=== PATIENT | male | born 1975 | race Hispanic/Latino ===

== ENCOUNTER 2017-08-06 06:12 | Emergency (ER) | payer OTHER ==
--- NOTE | 2017-08-06 06:36 | EDPHYS ---
Physician Documentation [facility] Name: Denis De Age: 41 yrs Sex: Male : 1975 Arrival Date: 08/06/2017 Time: 06:15 Bed 16 Private MD: ED Physician Markos Rosales HPI: 08/06 06:36 This 41 yrs old Male presents to ER via Unassigned with complaints of Nose kb Bleed. 06:36 The patient presents with a nose bleed, causative factors include: unknown, and the kb bleeding resolved prior to arrival. Onset: The symptoms/episode began/occurred 6 month(s) ago, and became worse yesterday. Modifying factors: The symptoms are alleviated by nothing. the symptoms are aggravated by blowing nose. Associated signs and symptoms: The patient has no apparent associated signs or symptoms, Loss of consciousness: the patient experienced no loss of consciousness. Severity of symptoms: At their worst the symptoms were mild moderate in the emergency department the symptoms have resolved. The patient has experienced similar episodes in the past. The patient has not recently seen a physician. Pt states he has been having intermittent nose bleeds for 6 months. States it starts after blowing his nose. Yesterday it happened twice and then again this morning so he came to get it checked out. Bleeding resolved shortly after starting. States he has diabetes and high blood pressure in his family, but has never been diagnosed with anything so he wanted to be checked for that too because he has noticed some redness to his feet over the last few months. States he looked it up last night and was worried about diabetic ulcers. Wears work boots 6 days a week. . Historical: - Allergies: 06:41 No Known Allergies; ea - Home Meds: 06:41 None [Active]; ea - PMHx: 06:41 None; ea - PSHx: 06:41 None; ea - Immunization history:: Adult Immunizations. - Social history:: Smoking status: Patient/guardian denies using tobacco. ROS: 06:36 Constitutional: Negative for fever, chills, and weight loss, Cardiovascular: Negative kb for chest pain, palpitations, and edema, Respiratory: Negative for shortness of breath, cough, wheezing, and pleuritic chest pain, Abdomen/GI: Negative for abdominal pain, nausea, vomiting, diarrhea, and constipation, Back: Negative for injury and pain, MS/Extremity: Negative for injury and deformity, Neuro: Negative for headache, weakness, numbness, tingling, and seizure. 06:36 ENT: Positive for nose bleed. 06:36 Skin: Positive for erythema, of the right foot and left foot. Exam: 06:36 Constitutional: This is a well developed, well nourished patient who is awake, alert, kb and in no acute distress. Head/Face: Normocephalic, atraumatic. ENT: Nares patent. No nasal discharge, no septal abnormalities noted. Tympanic membranes are normal and external auditory canals are clear. Oropharynx with no redness, swelling, or masses, exudates, or evidence of obstruction, uvula midline. Mucous membranes moist. Neck: Trachea midline, no thyromegaly or masses palpated, and no cervical lymphadenopathy. Supple, full range of motion without nuchal rigidity, or vertebral point tenderness. No Meningismus. Chest/axilla: Normal chest wall appearance and motion. Nontender with no deformity. No lesions are appreciated. Cardiovascular: Regular rate and rhythm with a normal S1 and S2. No gallops, murmurs, or rubs. Normal PMI, no JVD. No pulse deficits. Respiratory: Lungs have equal breath sounds bilaterally, clear to auscultation and percussion. No rales, rhonchi or wheezes noted. No increased work of breathing, no retractions or nasal flaring. Abdomen/GI: Soft, non-tender, with normal bowel sounds. No distension or tympany. No guarding or rebound. No evidence of tenderness throughout. MS/ Extremity: Pulses equal, no cyanosis. Neurovascular intact. Full, normal range of motion. Neuro: Awake and alert, GCS 15, oriented to person, place, time, and situation. Cranial nerves II-XII grossly intact. Motor strength 5/5 in all extremities. Sensory grossly intact. Cerebellar exam normal. Normal gait. 06:36 Skin: Appearance: normal except for affected area, Color: normal in color, pink, Temperature: normal temperature, warm, Moisture: normal moisture, dry, dry skin noted to bottom of bilateral feet. No redness, sores, ulcerations, open skin, swelling, drainage noted. . Vital Signs: 06:20 BP 163 / 90; Pulse 75; Resp 18; Temp 98.7(O); Pulse Ox 97% on R/A; Weight 95.25 kg; ea Height 5 ft. 7 in. (170.18 cm); Pain 4/10; 07:01 BP 152 / 80; Pulse 68; Resp 18 S; Temp 98.0(O); Pulse Ox 100% on R/A; ea 06:20 Body Mass Index 32.89 (95.25 kg, 170.18 cm) ea MDM: 06:35 Patient medically screened. kb 06:36 Data reviewed: vital signs, nurses notes. Data interpreted: Pulse oximetry: on room air kb is 97 %. Interpretation: normal. Counseling: I had a detailed discussion with the patient and/or guardian regarding: the historical points, exam findings, and any diagnostic results supporting the discharge/admit diagnosis, the need for outpatient follow up, an ENT specialist, a family practitioner, to return to the emergency department if symptoms worsen or persist or if there are any questions or concerns that arise at home. ED course: Pt educated on need for follow up with ENT regarding nose bleeds. Educated on not blowing nose because it causes bleeding. Verbal understanding received. Also educated on need for follow up with PCP for Hemoglobin A1C to test for diabetes because of his concern that he will develop it since it runs in his family. Verbal understanding received. Instructed to keep blood pressure log and take to PCP as well. . Administered Medications: No medications were administered Disposition: 08/06/17 06:35 Discharged to Home. Impression: Epistaxis. - Condition is Stable. - Discharge Instructions: Nosebleed, [id number]. - Work release form, Medication Reconciliation Form, Thank You Letter, Antibiotic Education, Prescription Opioid Use form. - Follow up: Emergency Department; When: As needed; Reason: Worsening of condition. Follow up: Private Physician; When: 2 - 3 days; Reason: Recheck today's complaints, Continuance of care, Re-evaluation by your physician. Follow up: Rosa Jain MD; When: 2 - 3 days; Reason: Recheck today's complaints. Addendum: 08/10/2017 08:24 Co-signature as Attending Physician, Markos Rosales MD. g s Signatures: Kendal Porter, LEIDAC ELISSA-Ckb Gutierrez, Eda, RN RN ea Rosales, Markos, MD MD gs
--- NOTE | 2017-08-06 07:03 | ER ---
Nurse's Notes [facility] Name: Denis De Age: 41 yrs Sex: Male : 1975 Arrival Date: 08/06/2017 Time: 06:15 Bed 16 Private MD: Diagnosis: Epistaxis Presentation: 08/06 06:20 Presenting complaint: Patient states: He has been having nose bleeds on and off for the ea past 6 months but has been worse this past week, reports he has been hurting on the bottom of his feet and is not sure if it's his new boots or something else. Transition of care: patient was not received from another setting of care. Onset of symptoms was August 06, 2017. Care prior to arrival: None. 06:20 Method Of Arrival: Ambulatory ea 06:20 Acuity: GUILLERMO 5 ea Triage Assessment: 06:25 General: Appears in no apparent distress. Behavior is calm, cooperative, appropriate ea for age. Pain: Complains of pain in right foot and left foot Pain currently is 4 out of 10 on a pain scale. Quality of pain is described as aching. EENT: Reports nose bleeds for the past 6 months. Neuro: Level of Consciousness is awake, alert, obeys commands, Oriented to person, place, time, situation. Cardiovascular: Patient's skin is warm and dry. Respiratory: Airway is patent Respiratory effort is even, unlabored, Respiratory pattern is regular, symmetrical. Historical: - Allergies: 06:41 No Known Allergies; ea - Home Meds: 06:41 None [Active]; ea - PMHx: 06:41 None; ea - PSHx: 06:41 None; ea - Immunization history:: Adult Immunizations. - Social history:: Smoking status: Patient/guardian denies using tobacco. Screenin:40 Abuse screen: Denies threats or abuse. Nutritional screening: No deficits noted. ea Tuberculosis screening: No symptoms or risk factors identified. Fall Risk None identified. Assessment: 07:00 Reassessment: Patient and/or family updated on plan of care and expected duration. Pain ea level reassessed. Patient is alert, oriented x 3, equal unlabored respirations, skin warm/dry/pink. Discharge instructions given to patient, verbalized the understanding of instruction. Vital Signs: 06:20 BP 163 / 90; Pulse 75; Resp 18; Temp 98.7(O); Pulse Ox 97% on R/A; Weight 95.25 kg; ea Height 5 ft. 7 in. (170.18 cm); Pain 4/10; 07:01 BP 152 / 80; Pulse 68; Resp 18 S; Temp 98.0(O); Pulse Ox 100% on R/A; ea 06:20 Body Mass Index 32.89 (95.25 kg, 170.18 cm) ea ED Course: 06:15 Patient arrived in ED. am2 06:20 Patient has correct armband on for positive identification. Bed in low position. Call ea light in reach. Side rails up X2. 06:25 Kendal Porter FNP-C is PHCP. kb 06:25 Arm band placed on right wrist. ea 06:26 Markos Rosales MD is Attending Physician. kb 06:35 Eda Gutierrez RN is Primary Nurse. ea 06:35 Rosa Jain MD is Referral Physician. kb 06:37 Triage completed. ea 06:41 No provider procedures requiring assistance completed. Patient did not have IV access ea during this emergency room visit. Administered Medications: No medications were administered Outcome: 06:35 Discharge ordered by . kb 06:59 Discharged to home ambulatory. ea 06:59 Condition: unchanged 06:59 Discharge instructions given to patient, Instructed on discharge instructions, follow up and referral plans. Demonstrated understanding of instructions, follow-up care. 07:02 Patient left the ED. ea Signatures: Kendal Porter FNP-C UX INTERACTION DESIGNER-Ckb Kaila Forrester am2 Eda Gutierrez, RN RN shonna
[2017-08-06 07:07] VITALS: BP 152/80; TEMP 98; O2SAT 100
== END 2017-08-06 07:02 | disposition home or self-care (01) ==
LOC: ER 06:12
DX: R04.0 Epistaxis (principal)
CPT/HCPCS: 99281

== ENCOUNTER 2019-11-11 22:37 | Emergency (ER) | payer SELFPAY, OTHER ==
[2019-11-12] MEDS ORDERED: ONDANSETRON 4 MG/2 ML VIAL ONE (01:11)
[2019-11-12] MEDS ORDERED: IBUPROFEN 400 MG TAB ONE (01:11)
[2019-11-12] MEDS ORDERED: IBUPROFEN 200 MG TAB PO ONE (01:11)
[2019-11-12] MEDS ORDERED: NA CHLORIDE 0.9% 1,000 ML ONE (01:12)
--- NOTE | 2019-11-12 02:49 | EDPHYS ---
Physician Documentation [facility] Name: Denis De Age: 43 yrs Sex: Male : 1975 Arrival Date: 11/11/2019 Time: 22:39 Bed 17 Private MD: ED Physician Jaime Hunt HPI: 11/11 02:46 This 43 yrs old Male presents to ER via Ambulatory with complaints of Fever, tw4 Chills. 02:46 The patient reports fever, not measured (subjective). Onset: The symptoms/episode tw4 began/occurred 5 day(s) ago. Modifying factors: there are no obvious modifying factors. Associated signs and symptoms: Pertinent positives: arthralgias, chills. Severity of symptoms: At their worst the symptoms were moderate in the emergency department the symptoms are unchanged. The patient has not experienced similar symptoms in the past. Historical: - Allergies: 00:05 No Known Allergies; sg - PSHx: 00:05 None; sg - Immunization history:: Adult Immunizations not up to date. - Social history:: Smoking status: Patient denies any tobacco usage or history of. ROS: 02:46 Eyes: Negative for injury, pain, redness, and discharge, Cardiovascular: Negative for tw4 chest pain, palpitations, and edema, Respiratory: Negative for shortness of breath, cough, wheezing, and pleuritic chest pain, Abdomen/GI: Negative for abdominal pain, nausea, vomiting, diarrhea, and constipation, Back: Negative for injury and pain, MS/Extremity: Negative for injury and deformity, Skin: Negative for injury, rash, and discoloration, Neuro: Negative for headache, weakness, numbness, tingling, and seizure. 02:46 Constitutional: Positive for chills, fever. Exam: 02:46 Constitutional: This is a well developed, well nourished patient who is awake, alert, tw4 and in no acute distress. Head/Face: Normocephalic, atraumatic. Chest/axilla: Normal chest wall appearance and motion. Nontender with no deformity. No lesions are appreciated. Cardiovascular: Regular rate and rhythm with a normal S1 and S2. No gallops, murmurs, or rubs. Normal PMI, no JVD. No pulse deficits. Respiratory: Lungs have equal breath sounds bilaterally, clear to auscultation and percussion. No rales, rhonchi or wheezes noted. No increased work of breathing, no retractions or nasal flaring. Abdomen/GI: Soft, non-tender, with normal bowel sounds. No distension or tympany. No guarding or rebound. No evidence of tenderness throughout. Back: No spinal tenderness. No costovertebral tenderness. Full range of motion. MS/ Extremity: Pulses equal, no cyanosis. Neurovascular intact. Full, normal range of motion. Neuro: Awake and alert, GCS 15, oriented to person, place, time, and situation. Cranial nerves II-XII grossly intact. Motor strength 5/5 in all extremities. Sensory grossly intact. Cerebellar exam normal. Normal gait. Vital Signs: 00:05 BP 142 / 77; Pulse 102; Resp 18; Temp 102.3(TE); Pulse Ox 96% on R/A; sg 01:32 BP 123 / 76; Pulse 95; Resp 20 S; Pulse Ox 95% on R/A; jd3 03:10 BP 119 / 68; Pulse 76; Resp 19 S; Temp 101.6(O); Pulse Ox 99% on R/A; jd3 MDM: 00:21 Patient medically screened. tw4 02:46 Differential diagnosis: viral Infection, bacterial infection, URI, bronchitis, tw4 pneumonia. Data reviewed: vital signs, nurses notes. Data reviewed: lab test result(s), CBC, electrolytes, Flu: negative radiologic studies, plain films. Data interpreted: Pulse oximetry: Interpretation: normal. Test interpretation: by ED physician or midlevel provider: plain radiologic studies. Counseling: I had a detailed discussion with the patient and/or guardian regarding: the historical points, exam findings, and any diagnostic results supporting the discharge/admit diagnosis. Special discussion: I discussed with the patient/guardian in detail that at this point there is no indication for admission to the hospital. It is understood, however, that if the symptoms persist or worsen the patient needs to return immediately for re-evaluation. 11/11 00:22 Order name: COVID-19 tw4 11/11 00:22 Order name: Flu tw4 11/11 00:22 Order name: Strep tw4 11/11 01:34 Order name: XRAY Chest (1 view) j 11/11 02:58 Order name: Throat Culture EDWY 11/11 00:22 Order name: Document PUI#; Complete Time: 00:53 tw4 11/11 00:22 Order name: Droplet/Contact Precautions; Complete Time: 00:27 4 11/11 00:22 Order name: Labs collected and sent; Complete Time: 00:53 4 11/11 00:22 [phone] ; Complete Time: 00:53 11/11 00:22 Order name: O2 Per Protocol; Complete Time: 00: tw4 Administered Medications: 01:31 Drug: NS 0.9% 1000 ml Route: IV; Rate: 1 bolus; Site: right wrist; jd3 02:30 Follow up: Response: No adverse reaction; IV Status: Completed infusion; IV Intake: jd3 1000ml 01:31 Drug: Zofran (Ondansetron) 4 mg Route: IVP; Site: right wrist; jd3 02:30 Follow up: Response: No adverse reaction jd3 01:32 Drug: Ibuprofen 600 mg Route: PO; jd3 02:30 Follow up: Response: No adverse reaction jd3 03:10 Drug: Tylenol 1000 mg Route: PO; jd3 03:11 Follow up: Response: Medication administered at discharge. jd3 Disposition: 11/12/19 02:48 Discharged to Home. Impression: Coronavirus infection, unspecified, Fever, unspecified. - Condition is Stable. - Discharge Instructions: Fever, Adult, Upper Respiratory Infection, Adult. - Prescriptions for Zofran 4 mg Oral Tablet - take 1 tablet by ORAL route every 12 hours As needed; 6 tablet. Zithromax Z- Aquiles 250 mg Oral Tablet - take 1 tablet by ORAL route as directed for 5 days Day 1 - take two (2) tablets one time. Day 2, 3, 4 , 5 take one (1) tablet once daily.; 6 tablet. Albuterol Sulfate 90 mcg/actuation - inhale 1-2 puff by INHALATION route every 4-6 hours; 1 Inhaler. - Medication Reconciliation Form, Thank You Letter, Antibiotic Education, Prescription Opioid Use form. - Follow up: Private Physician; When: Upon discharge from the Emergency Department; Reason: Recheck today's complaints, Continuance of care, Re-evaluation by your physician. - Problem is new. - Symptoms have improved. Addendum: 11/15/2019 13:39 Addendum: Called and notified patient of positive COVID-19 result at 1339, feels r n better, questions answered, told health department would be in contact for further recommendations and proof of positive test. . Signatures: Dispatcher [employer] EDMS Ace Burdick RN RN sg Anmol Alvarez MD MD rn Davies, Jonathon, RN RN jd3 Wadley, Terrence, MD MD tw4 Corrections: (The following items were deleted from the chart) 11/11 03:12 02:48 11/12/2019 02:48 Discharged to Home. Impression: Coronavirus infection, jd3 unspecified; Fever, unspecified. Condition is Stable. Forms are Medication Reconciliation Form, Thank You Letter, Antibiotic Education, Prescription Opioid Use. Follow up: Private Physician; When: Upon discharge from the Emergency Department; Reason: Recheck today's complaints, Continuance of care, Re-evaluation by your physician. Problem is new. Symptoms have improved. tw4
--- NOTE | 2019-11-12 02:49 | ER ---
Nurse's Notes 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 Coronavirus screen: Patient reports a cough. Patient denies shortness of breath or difficulty breathing. Patient reports a measured and/or subjective temperature greater than 100.4F. Patient denies travel on a cruise ship or to a country the [facility] currently lists as an affected area. Patient denies contact with known and/or suspected case of COVID-19. Ebola Screen: Patient negative for fever greater than or equal to 101.5 degrees Fahrenheit, and additional compatible Ebola Virus Disease symptoms Patient denies exposure to infectious person. Patient denies travel to an Ebola-affected area in the 21 days before illness onset. No symptoms or risks identified at this time. Initial Sepsis Screen: Does the patient meet any 2 criteria? HR > 90 bpm. Does the patient have a suspected source of infection? Yes: Productive cough/pneumonia. Risk Assessment: Do you want to hurt yourself or someone else? Patient reports no desire to harm self or others. Onset of symptoms was November 12, 2019. Care prior to arrival: None. Transition of care: patient was not received from another setting of care. 00:05 Method Of Arrival: Ambulatory sg Historical: - Allergies: 00:05 No Known Allergies; sg - PSHx: 00:05 None; sg - Immunization history:: Adult Immunizations not up to date. - Social history:: Smoking status: Patient denies any tobacco usage or history of. Screenin:53 Abuse screen: Denies threats or abuse. Nutritional screening: No deficits noted. jd3 Tuberculosis screening: No symptoms or risk factors identified. Fall Risk Ambulatory Aid- None/Bed Rest/Nurse Assist (0 pts). Gait- Normal/Bed Rest/Wheelchair (0 pts) Mental Status- Oriented to own ability (0 pts). Total Soni Fall Scale indicates No Risk (0-24 pts). Assessment: 00:50 General: Appears in no apparent distress. uncomfortable, Behavior is calm, cooperative, jd3 appropriate for age. Pain: Complains of pain in back and abdomen Quality of pain is described as aching, radiating. Neuro: Level of Consciousness is awake, alert, obeys commands, Oriented to person, place, time, situation. Cardiovascular: Heart tones present Capillary refill < 3 seconds Patient's skin is warm and dry. Rhythm is regular. Respiratory: Reports shortness of breath at rest cough that is non-productive, persistent Airway is patent Respiratory effort is even, unlabored, Respiratory pattern is regular, symmetrical, Breath sounds with wheezes bilaterally. GI: Abdomen is round non-distended, Abd is soft and non tender X 4 quads. Reports diarrhea, vomiting. : No signs and/or symptoms were reported regarding the genitourinary system. EENT: No signs and/or symptoms were reported regarding the EENT system. Derm: Skin is intact, Skin is dry, Skin is normal, Skin temperature is warm. Musculoskeletal: Circulation, motion, and sensation intact. Range of motion: intact in all extremities. 01:32 Reassessment: No changes from previously documented assessment. Patient and/or family jd3 updated on plan of care and expected duration. Pain level reassessed. Patient is alert, oriented x 3, equal unlabored respirations, skin warm/dry/pink. 03:10 Reassessment: Patient appears in no apparent distress at this time. Patient and/or jd3 family updated on plan of care and expected duration. Pain level reassessed. Patient is alert, oriented x 3, equal unlabored respirations, skin warm/dry/pink. Patient states feeling better. Vital Signs: 00:05 BP 142 / 77; Pulse 102; Resp 18; Temp 102.3(TE); Pulse Ox 96% on R/A; sg 01:32 BP 123 / 76; Pulse 95; Resp 20 S; Pulse Ox 95% on R/A; jd3 03:10 BP 119 / 68; Pulse 76; Resp 19 S; Temp 101.6(O); Pulse Ox 99% on R/A; jd3 ED Course: 11/10 22:39 Patient arrived in ED. ds1 11/11 00:05 Triage completed. sg 00:05 Arm band placed on. sg 00:21 Jaime Hunt MD is Attending Physician. tw4 00:21 Charlie Mariano RN is Primary Nurse. jd3 00:53 Patient has correct armband on for positive identification. Placed in gown. Bed in low jd3 position. Call light in reach. Side rails up X 1. Pulse ox on. NIBP on. 01:30 Inserted saline lock: 20 gauge in right wrist, using aseptic technique. jd3 01:52 XRAY Chest (1 view) In Process Unspecified. EDMS 03:12 No provider procedures requiring assistance completed. IV discontinued, intact, jd3 bleeding controlled, No redness/swelling at site. Pressure dressing applied. Administered Medications: 01:31 Drug: NS 0.9% 1000 ml Route: IV; Rate: 1 bolus; Site: right wrist; jd3 02:30 Follow up: Response: No adverse reaction; IV Status: Completed infusion; IV Intake: jd3 1000ml 01:31 Drug: Zofran (Ondansetron) 4 mg Route: IVP; Site: right wrist; jd3 02:30 Follow up: Response: No adverse reaction jd3 01:32 Drug: Ibuprofen 600 mg Route: PO; jd3 02:30 Follow up: Response: No adverse reaction jd3 03:10 Drug: Tylenol 1000 mg Route: PO; jd3 03:11 Follow up: Response: Medication administered at discharge. jd3 Intake: 02:30 IV: 1000ml; Total: 1000ml. jd3 Outcome: 02:48 Discharge ordered by . tw4 03:12 Patient left the ED. jd3 03:12 Discharged to home ambulatory. jd3 03:12 Condition: stable 03:12 Discharge instructions given to patient, Instructed on discharge instructions, follow up and referral plans. medication usage, Demonstrated understanding of instructions, follow-up care, medications, Prescriptions given X 3. Signatures: Dispatcher [employer] EDMS Ace Burdick, RN JERED lowe Missy Membreno ds1 Charlie Mariano RN RN jd3 Wadley, Terrence, MD MD tw4
[2019-11-12] MEDS ORDERED: ACETAMINOPHEN 500 MG TAB ONE (03:15)
[2019-11-12 03:23] VITALS: BP 119/68; TEMP 101.6; O2SAT 99
--- NOTE | 2019-11-12 11:45 | RAD REPORT ---
EXAM DESCRIPTION: Francie Single View11/12/2019 1:51 am CLINICAL HISTORY: cough COMPARISON: 2016 FINDINGS: The patient is in a poor degree of inspiration. There are equivocal mild bilateral pulmonary opacities Heart is normal size
== END 2019-11-12 03:12 | disposition home or self-care (01) ==
LOC: ER 22:37
DX: U07.1 COVID-19 (principal)
CPT/HCPCS: 71045; 87070; 87081; 87804; 96361; 96374; 99284; J2405; J7030; U0002

== ENCOUNTER 2020-02-13 07:58 | Emergency (ER) | payer OTHER, SELFPAY ==
--- NOTE | 2020-02-13 08:15 | EDPHYS ---
Physician Documentation [facility] Name: Denis De Age: 44 yrs Sex: Male : 1975 Arrival Date: 02/13/2020 Time: 07:59 Bed 8 Private MD: ED Physician Anmol Alvarez HPI: 02/12 08:12 This 44 yrs old Male presents to ER via Ambulatory with complaints of Rash. rn 08:12 The patient's rash thought to be caused by an unknown cause. The rash is located on the rn right foot and left foot. Severity of symptoms: At their worst the symptoms were mild in the emergency department the symptoms are unchanged. The patient has not experienced similar symptoms in the past. Reports rash to bottom of feet. Bought new boots recently and puts insoles in shoes. no fever. + burning and itching. Has been messing with rash using needle. . Historical: - Allergies: 08:10 PENICILLINS; iw - Home Meds: 08:10 losartan oral oral once daily [Active]; iw - PMHx: 08:10 Hypertension; iw - PSHx: 08:10 None; iw - Immunization history:: Adult Immunizations unknown. - Social history:: Smoking status: . - Family history:: not pertinent. - Hospitalizations: : No recent hospitalization is reported. ROS: 08:12 Constitutional: Negative for fever, chills, and weight loss, Skin: + rash to bottom of rn feet Exam: 08:12 Constitutional: This is a well developed, well nourished patient who is awake, alert, rn and in no acute distress. Skin: Warm, dry, skin breakdown bilateral soles on arches, no purulence, no streaking. MS/ Extremity: Pulses equal, no cyanosis. Neurovascular intact. Full, normal range of motion. Equal circumference. Vital Signs: 08:07 BP 164 / 107; Pulse 75; Resp 16; Temp 98.3; Pulse Ox 98% on R/A; iw MDM: 08:01 Patient medically screened. rn 08:12 Differential diagnosis: dermatitis, skin breakdown from arch support friction, fungal rn infection. Data reviewed: vital signs, nurses notes, and as a result, I will discharge patient. Counseling: I had a detailed discussion with the patient and/or guardian regarding: the historical points, exam findings, and any diagnostic results supporting the discharge/admit diagnosis, the need for outpatient follow up, to return to the emergency department if symptoms worsen or persist or if there are any questions or concerns that arise at home. Special discussion: I discussed with the patient/guardian in detail that at this point there is no indication for admission to the hospital. It is understood, however, that if the symptoms persist or worsen the patient needs to return immediately for re-evaluation. 08:15 ED course: Advised to remove new insoles to minimize friction.. rn Administered Medications: No medications were administered Disposition: 02/13/20 08:14 Discharged to Home. Impression: Dermatitis, unspecified. - Condition is Stable. - Discharge Instructions: Rash. - Prescriptions for Clindamycin HCl 300 mg Oral Capsule - take 1 capsule by ORAL route every 6 hours for 10 days; 40 capsule. Nystatin- Triamcinolone 100,000-0.1 unit/g-% Topical Cream - apply 1 application by TOPICAL route 2 times per day; 1 tube. - Work release form, Medication Reconciliation Form, Thank You Letter, Antibiotic Education, Prescription Opioid Use form. - Follow up: Private Physician; When: As needed; Reason: Recheck today's complaints, Re-evaluation by your physician. - Problem is new. - Symptoms are unchanged. Signatures: Sarah Holman RN RN iw Anmol Alvarez MD MD churn drill operator: (The following items were deleted from the chart) 08:29 08:14 02/13/2020 08:14 Discharged to Home. Impression: Dermatitis, unspecified. iw Condition is Stable. Forms are Medication Reconciliation Form, Thank You Letter, Antibiotic Education, Prescription Opioid Use. Follow up: Private Physician; When: As needed; Reason: Recheck today's complaints, Re-evaluation by your physician. Problem is new. Symptoms are unchanged. rn
--- NOTE | 2020-02-13 08:15 | ER ---
Nurse's Notes [facility] Name: Denis De Age: 44 yrs Sex: Male : 1975 Arrival Date: 02/13/2020 Time: 07:59 Bed 8 Private MD: Diagnosis: Dermatitis, unspecified Presentation: 02/12 08:07 Chief complaint: Patient states: hand started itching 3 days ago, also has blisters on iw bottom of feet X 3-4 days that are itchy, also had edu hip pain this morning. Coronavirus screen: At this time, the client does not indicate any symptoms associated with coronavirus-19. Ebola Screen: Patient negative for fever greater than or equal to 101.5 degrees Fahrenheit, and additional compatible Ebola Virus Disease symptoms Patient denies exposure to infectious person. Patient denies travel to an Ebola-affected area in the 21 days before illness onset. No symptoms or risks identified at this time. Initial Sepsis Screen: Does the patient meet any 2 criteria? No. Patient's initial sepsis screen is negative. Does the patient have a suspected source of infection? No. Patient's initial sepsis screen is negative. Risk Assessment: Do you want to hurt yourself or someone else? Patient reports no desire to harm self or others. Onset of symptoms was February 10, 2020. 08:07 Method Of Arrival: Ambulatory iw 08:07 Acuity: GUILLERMO 4 iw Historical: - Allergies: 08:10 PENICILLINS; iw - Home Meds: 08:10 losartan oral oral once daily [Active]; iw - PMHx: 08:10 Hypertension; iw - PSHx: 08:10 None; iw - Immunization history:: Adult Immunizations unknown. - Social history:: Smoking status: . - Family history:: not pertinent. - Hospitalizations: : No recent hospitalization is reported. Screenin:11 Abuse screen: Denies threats or abuse. Denies injuries from another. Nutritional iw screening: No deficits noted. Tuberculosis screening: No symptoms or risk factors identified. Fall Risk None identified. Assessment: 08:10 General: Appears in no apparent distress. Behavior is calm, cooperative. Pain: Denies iw pain. Neuro: Level of Consciousness is awake, alert, obeys commands, Oriented to person, place, time, situation, Moves all extremities. Full function. Cardiovascular: Patient's skin is warm and dry. Respiratory: Respiratory effort is even, unlabored, Respiratory pattern is regular, symmetrical. GI: Abdomen is non-distended. Derm: Skin has blisters on bottom of both feet. Musculoskeletal: Range of motion: intact in all extremities. Vital Signs: 08:07 BP 164 / 107; Pulse 75; Resp 16; Temp 98.3; Pulse Ox 98% on R/A; iw ED Course: 07:59 Patient arrived in ED. ag5 08:01 Anmol Alvarez MD is Attending Physician. rn 08:07 Sarah Holman RN is Primary Nurse. iw 08:09 Triage completed. iw 08:10 Arm band placed on. iw 08:11 Patient has correct armband on for positive identification. iw 08:11 No provider procedures requiring assistance completed. iw 08:29 Patient did not have IV access during this emergency room visit. iw Administered Medications: No medications were administered Outcome: 08:14 Discharge ordered by . rn 08:28 Discharged to home ambulatory. iw 08:28 Condition: good 08:28 Discharge instructions given to patient, Instructed on discharge instructions, follow up and referral plans. Demonstrated understanding of instructions, follow-up care, medications, Prescriptions given X 2. 08:29 Patient left the ED. iw Signatures: Sarah Holman RN RN Anmol Alvarez MD MD rn Gaskin, Ajare ag5
[2020-02-13 08:35] VITALS: BP 164/107; TEMP 98.3; O2SAT 98
== END 2020-02-13 08:29 | disposition home or self-care (01) ==
LOC: ER 07:58
DX: L30.9 Dermatitis, unspecified (principal); I10 Essential (primary) hypertension; Z88.0 Allergy status to penicillin
CPT/HCPCS: 99282

== ENCOUNTER 2020-02-18 07:51 | Emergency (ER) | payer SELFPAY ==
--- NOTE | 2020-02-18 08:10 | EDPHYS ---
Physician Documentation [facility] Name: Denis De Age: 44 yrs Sex: Male : 1975 Arrival Date: 02/18/2020 Time: 07:52 Bed 7 Private MD: ED Physician Anmol Alvarez HPI: 02/17 08:06 This 44 yrs old Male presents to ER via Ambulatory with complaints of Rash. rn 08:06 The patient's rash thought to be caused by an unknown cause. The rash is located on the rn body diffusely. The rash can be described as erythematous, papular. 08:07 Onset: The symptoms/episode began/occurred 1 week(s) ago. Severity of symptoms: At rn their worst the symptoms were mild in the emergency department the symptoms are unchanged. The patient has not experienced similar symptoms in the past. Reports 1 week of rash to feet, was thought to be secondary to new insoles and boots, given antifungal and abx, not getting better, seen by another physician, told same thing, given new ointment, not better. Now for last few days has had itchy rash diffusely, no other person in family with same rash. no fever. No peeling. . Historical: - Allergies: 08:00 PENICILLINS; aa5 - Home Meds: 08:00 losartan Oral once daily [Active]; aa5 - PMHx: 08:00 Hypertension; aa5 - Immunization history:: Adult Immunizations up to date. - Family history:: not pertinent. - Social history:: Smoking status: Patient/guardian denies using. - Hospitalizations: : No recent hospitalization is reported. ROS: 08:07 Constitutional: Negative for fever, chills, and weight loss, Eyes: Negative for injury, rn pain, redness, and discharge, ENT: Negative for injury, pain, and discharge, Neck: Negative for injury, pain, and swelling, Cardiovascular: Negative for chest pain, palpitations, and edema, Respiratory: Negative for shortness of breath, cough, wheezing, and pleuritic chest pain, Abdomen/GI: Negative for abdominal pain, nausea, vomiting, diarrhea, and constipation, MS/Extremity: Negative for injury and deformity, Skin: + itchy rash diffusely Neuro: Negative for headache, weakness, numbness, tingling, and seizure. Exam: 08:07 Constitutional: This is a well developed, well nourished patient who is awake, alert, rn and in no acute distress. ENT: No stridor Respiratory: No increased work of breathing, no retractions or nasal flaring. Skin: Diffuse papular rash with excoriations. NO bullae or skin sloughing. Vital Signs: 07:55 BP 165 / 111; Pulse 84; Resp 16 S; Temp 98.1(O); Pulse Ox 98% on R/A; aa5 MDM: 07:53 Patient medically screened. rn 08:09 Differential diagnosis: allergic reaction, scabies, dermatitis. Data reviewed: vital rn signs, nurses notes, and as a result, I will discharge patient. Counseling: I had a detailed discussion with the patient and/or guardian regarding: the historical points, exam findings, and any diagnostic results supporting the discharge/admit diagnosis, the need for outpatient follow up, to return to the emergency department if symptoms worsen or persist or if there are any questions or concerns that arise at home. Special discussion: I discussed with the patient/guardian in detail that at this point there is no indication for admission to the hospital. It is understood, however, that if the symptoms persist or worsen the patient needs to return immediately for re-evaluation. Based on the history and exam findings, there is no indication for further emergent testing or inpatient evaluation. I discussed with the patient/guardian the need to see the statistical methods professor for further evaluation of the symptoms. Administered Medications: 08:14 Drug: SOLU-Medrol 125 mg Route: IM; Site: right gluteus; rb1 08:32 Follow up: Response: No adverse reaction rb1 Disposition: 02/18/20 08:10 Discharged to Home. Impression: Rash and other nonspecific skin eruption. - Condition is Stable. - Discharge Instructions: Rash. - Prescriptions for Hydroxyzine HCl 50 mg Oral Tablet - take 1 tablet by ORAL route every 8 hours As needed; 20 tablet. Prednisone 20 mg Oral Tablet - take 3 tablet by ORAL route once daily for 5 days; 15 tablet. - Medication Reconciliation Form, Thank You Letter, Antibiotic Education, Prescription Opioid Use form. - Follow up: Private Physician; When: As needed; Reason: Recheck today's complaints, Re-evaluation by your physician. - Problem is an ongoing problem. - Symptoms are unchanged. Signatures: Anmol Alvarez MD MD rn Calderon, Audri RN RN aa5 Jeannette Hsieh, RN RN rb1 Corrections: (The following items were deleted from the chart) 08:31 08:10 02/18/2020 08:10 Discharged to Home. Impression: Rash and other nonspecific skin rb1 eruption. Condition is Stable. Forms are Medication Reconciliation Form, Thank You Letter, Antibiotic Education, Prescription Opioid Use. Follow up: Private Physician; When: As needed; Reason: Recheck today's complaints, Re-evaluation by your physician. Problem is an ongoing problem. Symptoms are unchanged. rn
--- NOTE | 2020-02-18 08:10 | ER ---
Nurse's Notes [facility] Name: Denis De Age: 44 yrs Sex: Male : 1975 Arrival Date: 02/18/2020 Time: 07:52 Bed 7 Private MD: Diagnosis: Rash and other nonspecific skin eruption Presentation: 02/17 07:55 Chief complaint: Patient states: was seen here on 02/13/20 for rash to hands and aa5 blisters to feet and reports rash started spreading all over body approximately 3 days ago, pt states "2 doctors gave me a cream and it didn't do anything". Pt was prescribed Clindamycin and Nystatin/Triamcinolone 02/13/20. 07:55 Coronavirus screen: Client denies travel out of the [place] in the last 14 days. At this aa5 time, the client does not indicate any symptoms associated with coronavirus-19. Ebola Screen: Patient negative for fever greater than or equal to 101.5 degrees Fahrenheit, and additional compatible Ebola Virus Disease symptoms. Initial Sepsis Screen: Does the patient meet any 2 criteria? No. Patient's initial sepsis screen is negative. Does the patient have a suspected source of infection? No. Patient's initial sepsis screen is negative. Risk Assessment: Do you want to hurt yourself or someone else? Patient reports no desire to harm self or others. Onset of symptoms was February 2020. 07:55 Acuity: GUILLERMO 4 aa5 07:55 Method Of Arrival: Ambulatory aa5 Historical: - Allergies: 08:00 PENICILLINS; aa5 - Home Meds: 08:00 losartan Oral once daily [Active]; aa5 - PMHx: 08:00 Hypertension; aa5 - Immunization history:: Adult Immunizations up to date. - Family history:: not pertinent. - Social history:: Smoking status: Patient/guardian denies using. - Hospitalizations: : No recent hospitalization is reported. Screenin:00 Abuse screen: Denies threats or abuse. Nutritional screening: No deficits noted. rb1 Tuberculosis screening: No symptoms or risk factors identified. Fall Risk None identified. Assessment: 08:00 General: Appears in no apparent distress. comfortable, Behavior is calm, cooperative. rb1 Neuro: Level of Consciousness is awake, alert, obeys commands, Oriented to person, place, time, situation. Cardiovascular: Capillary refill < 3 seconds. Respiratory: Airway is patent Respiratory effort is even, unlabored, Respiratory pattern is regular, symmetrical. GI: No signs and/or symptoms were reported involving the gastrointestinal system. : No signs and/or symptoms were reported regarding the genitourinary system. Derm: Rash noted that is raised, on Generalized. 08:00 Derm: Reports itching, pain that is 5 out of 10 on a pain scale. rb1 08:08 Pain: Complains of pain in generalized Pain currently is 5 out of 10 on a pain scale. rb1 Vital Signs: 07:55 BP 165 / 111; Pulse 84; Resp 16 S; Temp 98.1(O); Pulse Ox 98% on R/A; aa5 ED Course: 07:52 Patient arrived in ED. ag5 07:52 Arm band placed on Patient placed in an exam room, on a stretcher. aa5 07:53 Anmol Alvarez MD is Attending Physician. rn 07:59 Jeannette Hsieh, RN is Primary Nurse. rb1 08:00 Patient has correct armband on for positive identification. Bed in low position. Call rb1 light in reach. Side rails up X 1. Pulse ox on. NIBP on. 08:04 Triage completed. aa5 08:31 No provider procedures requiring assistance completed. Patient did not have IV access rb1 during this emergency room visit. Administered Medications: 08:14 Drug: SOLU-Medrol 125 mg Route: IM; Site: right gluteus; rb1 08:32 Follow up: Response: No adverse reaction rb1 Outcome: 08:10 Discharge ordered by . rn 08:31 Patient left the ED. rb1 08:31 Discharged to home ambulatory. rb1 08:31 Condition: stable 08:31 Discharge instructions given to patient, Instructed on discharge instructions, follow up and referral plans. medication usage, Demonstrated understanding of instructions, follow-up care, medications, Prescriptions given X 2. Signatures: Anmol Alvarez MD MD rn Calderon, Audri, RN RN 5 Jeannette Hsieh, JERED RN Jaymie Gomez 5 Corrections: (The following items were deleted from the chart) 08:09 08:00 Derm: Rash noted that is raised, on Generalized rb1 rb1
[2020-02-18] MEDS ORDERED: METHYLPREDNISOLONE 125 MG INJ ONE (08:24)
[2020-02-18 08:36] VITALS: BP 165/111; TEMP 98.1; O2SAT 98
== END 2020-02-18 08:31 | disposition home or self-care (01) ==
LOC: ER 07:51
DX: R21 Rash and other nonspecific skin eruption (principal); I10 Essential (primary) hypertension; Z88.0 Allergy status to penicillin
CPT/HCPCS: 96372; 99283; J2930

== ENCOUNTER 2020-02-23 10:29 | Emergency (ER) | payer SELFPAY ==
[2020-02-23] MEDS ORDERED: MORPHINE 4 MG/ML SYR ONE (10:49)
[2020-02-23] MEDS ORDERED: ASPIRIN 81 MG CHEWABLE TABLET ONE (10:49)
[2020-02-23] MEDS ORDERED: ONDANSETRON 4 MG/2 ML VIAL ONE (10:50)
[2020-02-23 10:56] LABS: Absolute Lymphocytes (CBC) 4.5 K/uL (0.7-4.9); Basophils % 0.5 % (0-1.3); Hematocrit 45.3 % (39.6-49.0); Lymphocytes % 38.1 % (15.3-44.8); MPV 8.2 fL (7.6-11.3); RBC Red Blood Cell Count 5.04 M/uL (4.33-5.43)
[2020-02-23 10:57] LABS: Protime INR 0.99
--- NOTE | 2020-02-23 11:16 | RAD REPORT ---
EXAM DESCRIPTION: CT - Angio Aorta For Dissection - 02/23/2020 11:03 am CLINICAL HISTORY: Chest pain radiating to the back. CHEST PAIN COMPARISON: No comparisons TECHNIQUE: CT angiography of the aorta was performed with MIPs. All CT scans are performed using dose optimization technique as appropriate and may include automated exposure control or mA/KV adjustment according to patient size. FINDINGS: A left aortic arch is present with normal branching pattern of the great vessels.No acute aortic finding is seen such as aneurysm, penetrating ulcer or dissection. The celiac axis, SMA, DIANA and renal arteries are patent. No evidence of pulmonary embolism. The lungs are clear. The liver demonstrates no focal mass or biliary dilatation.Diffuse fatty liver.The spleen, pancreas, adrenal glands and kidneys are within normal limits for arterial phase imaging. No bowel obstruction, free fluid or abscess.Normal appendix.No pathologic enlarged lymphadenopathy id entified.Small bilateral fat containing inguinal hernias. No fracture or worrisome bone lesion seen. IMPRESSION: No acute aortic finding is demonstrated.
--- NOTE | 2020-02-23 11:18 | RAD REPORT ---
EXAM DESCRIPTION: RAD - Chest Single View - 02/23/2020 11:14 am CLINICAL HISTORY: CHEST PAIN Chest pain. COMPARISON: Chest Single View dated 11/12/2019; Chest Single View dated 12/09/2015; CHEST PA AND LAT 2 VIEW dated 10/12/2011 FINDINGS: Portable technique limits examination quality. The lungs are grossly clear. The heart is normal in size. No displaced fractures. IMPRESSION: No acute intrathoracic process suspected.
[2020-02-23 11:19] LABS: ALT/SGPT 208 U/L (12-78); AST/SGOT 139 U/L (15-37); Albumin 4.1 g/dL (3.4-5.0); Alkaline Phosphatase 118 U/L (45-117); BUN Blood Urea Nitrogen 12 mg/dL (7-18); Bicarbonate 19 mmol/L (21-32); Bilirubin Direct 0.1 mg/dL (0-0.2); Bilirubin Total 0.3 mg/dL (0.2-1.0); Glucose Level 109 mg/dL (74-106); Magnesium 2.3 mg/dL (1.8-2.4); NT PRO-BNP 38 pg/mL (<125); Potassium 3.4 mmol/L (3.5-5.1); Protein, Total 8.6 g/dL (6.4-8.2); Sodium Level 144 mmol/L (136-145); Troponin (Emerg Dept Use Only) < 0.02 ng/mL (0.0-0.045)
[2020-02-23] MEDS ORDERED: METOPROLOL TARTRATE 5 MG/5 ML INJ IV ONE (11:53)
[2020-02-23] MEDS ORDERED: NA CHLORIDE 0.9% 500 ML ONE (12:11)
--- NOTE | 2020-02-23 14:25 | EDPHYS ---
Physician Documentation [facility] Name: Denis De Age: 44 yrs Sex: Male : 1975 Arrival Date: 02/23/2020 Time: 10:31 Bed 7 Private MD: ED Physician Avi Breen HPI: 02/22 10:45 This 44 yrs old Male presents to ER via Wheelchair with complaints of Chest kdr Pain. 10:45 The patient or guardian reports chest pain that is located primarily in the substernal kdr area. Onset: suddenly, just prior to arrival. The pain radiates to Associated signs and symptoms: Pertinent positives: diaphoresis, nausea, shortness of breath, vomiting, Pertinent negatives: abdominal pain, dizziness, headache, lower extremity pain, lower extremity swelling, lightheadedness, near syncope, palpitations. The chest pain is described as sharp, stabbing. Duration: The patient or guardian reports a single episode, that is still ongoing, and unchanged. Modifying factors: The symptoms are alleviated by nothing. the symptoms are aggravated by activity, breathing, cough, exertion. Severity of pain: At its worst the pain was severe incapacitating in the emergency department the pain is unchanged. The patient has not experienced similar symptoms in the past. The patient has not recently seen a physician. Historical: - Allergies: 10:33 PENICILLINS; hb - Home Meds: 10:33 losartan Oral once daily [Active]; hb - PMHx: 10:33 Hypertension; hb - Immunization history:: Adult Immunizations up to date. - Social history:: Smoking status: Patient denies any tobacco usage or history of. ROS: 10:45 Constitutional: Negative for fever, chills, and weight loss, Eyes: Negative for injury, kdr pain, redness, and discharge, ENT: Negative for injury, pain, and discharge, Neck: Negative for injury, pain, and swelling, Respiratory: Negative for shortness of breath, cough, wheezing, and pleuritic chest pain, Abdomen/GI: Negative for abdominal pain, nausea, vomiting, diarrhea, and constipation, Back: Negative for injury and pain, : Negative for injury, bleeding, discharge, and swelling, MS/Extremity: Negative for injury and deformity, Skin: Negative for injury, rash, and discoloration, Neuro: Negative for headache, weakness, numbness, tingling, and seizure activity. Psych: Negative for depression, anxiety, suicide ideation, homicidal ideation, and hallucinations, Allergy/Immunology: Negative for hives, rash, and allergies, Endocrine: Negative for neck swelling, polydipsia, polyuria, polyphagia, and marked weight changes, Hematologic/Lymphatic: Negative for swollen nodes, abnormal bleeding, and unusual bruising. 10:45 Cardiovascular: Positive for chest pain, Negative for edema, orthopnea, palpitations, paroxysmal nocturnal dyspnea. Exam: 10:45 Constitutional: This is a well developed, well nourished patient who is awake, alert, kdr and in moderate severe distress. Head/Face: Normocephalic, atraumatic. Eyes: Pupils equal round and reactive to light, extra-ocular motions intact. Lids and lashes normal. Conjunctiva and sclera are non-icteric and not injected. Cornea within normal limits. Periorbital areas with no swelling, redness, or edema. Neck: Trachea midline, no thyromegaly or masses palpated, and no cervical lymphadenopathy. Supple, full range of motion without nuchal rigidity, or vertebral point tenderness. No Meningismus. Chest/axilla: Normal chest wall appearance and motion. Nontender with no deformity. No lesions are appreciated. Cardiovascular: Regular rate and rhythm with a normal S1 and S2. No gallops, murmurs, or rubs. Normal PMI, no JVD. No pulse deficits. Respiratory: Lungs have equal breath sounds bilaterally, clear to auscultation and percussion. No rales, rhonchi or wheezes noted. No increased work of breathing, no retractions or nasal flaring. Abdomen/GI: Soft, non-tender, with normal bowel sounds. No distension or tympany. No guarding or rebound. No evidence of tenderness throughout. Back: No spinal tenderness. No costovertebral tenderness. Full range of motion. Skin: Warm, dry with normal turgor. Normal color with no rashes, no lesions, and no evidence of cellulitis. MS/ Extremity: Pulses equal, no cyanosis. Neurovascular intact. Full, normal range of motion. Neuro: Awake and alert, GCS 15, oriented to person, place, time, and situation. Cranial nerves II-XII grossly intact. Motor strength 5/5 in all extremities. Sensory grossly intact. Cerebellar exam normal. Normal gait. Psych: Awake, alert, with orientation to person, place and time. Behavior, mood, and affect are within normal limits. 19:32 ECG was reviewed by the Attending Physician. kdr Vital Signs: 10:34 BP 186 / 119; Pulse 101; Resp 18; Temp 98.9; Pulse Ox 99% on R/A; Pain 10/10; em 10:46 BP 147 / 94; em 10:46 BP 177 / 118 LA; em 11:10 BP 174 / 94; Pulse 78; Resp 18; Pulse Ox 95% on R/A; Pain 0/10; em 11:33 BP 149 / 94; Pulse 81; Resp 18; Pulse Ox 95% on R/A; em 11:40 BP 141 / 92; Pulse 72 LA; em 12:00 BP 132 / 94; Pulse 67; Resp 18; Pulse Ox 97% on R/A; Pain 0/10; em 13:00 BP 163 / 100; Pulse 77; Resp 17; Pulse Ox 100% on R/A; hb 14:30 BP 150 / 102; Pulse 67; Resp 18; Pulse Ox 96% on R/A; em MDM: 10:45 Data reviewed: vital signs, nurses notes, lab test result(s), radiologic studies. kdr Counseling: I had a detailed discussion with the patient and/or guardian regarding: the historical points, exam findings, and any diagnostic results supporting the discharge/admit diagnosis, lab results, radiology results. 14:24 Patient medically screened. kdr 02/22 10:32 Order name: Basic Metabolic Panel; Complete Time: 12:05 hb 02/22 10:32 Order name: CBC with Diff; Complete Time: 12:05 hb 02/22 10:32 Order name: LFT's; Complete Time: 12:05 hb 02/22 10:32 Order name: Magnesium; Complete Time: 12:05 hb 02/22 10:32 Order name: NT PRO-BNP; Complete Time: 12:05 hb 02/22 10:32 Order name: PT-INR; Complete Time: 12:05 hb 02/22 10:32 Order name: Troponin (emerg Dept Use Only); Complete Time: 12:05 hb 02/22 10:32 Order name: XRAY Chest (1 view); Complete Time: 12:05 hb 02/22 10:46 Order name: ETOH Level; Complete Time: 12:05 em 02/22 11:00 Order name: Angio Aorta For Dissection; Complete Time: 12:05 EDMS 02/22 11:25 Order name: CREATININE WHOLE BLOOD; Complete Time: 12:05 EDMS 02/22 11:37 Order name: Lipase; Complete Time: 12:05 em 02/22 13:27 Order name: Troponin (emerg Dept Use Only) em 02/22 10:32 Order name: EKG; Complete Time: 10:33 hb 02/22 10:32 Order name: Cardiac monitoring; Complete Time: 10:42 hb 02/22 10:32 Order name: EKG - Nurse/Tech; Complete Time: 10:37 hb 02/22 10:32 Order name: IV Saline Lock; Complete Time: 10:43 hb 02/22 10:32 Order name: Labs collected and sent; Complete Time: 10:43 hb 02/22 10:32 Order name: O2 Per Protocol; Complete Time: 10:42 hb 02/22 10:32 Order name: O2 Sat Monitoring; Complete Time: 10:42 hb EC:32 Rate is 96 beats/min. Rhythm is regular, Sinus Rhythm with No ectopy. QRS [place] is kdr Normal. FL interval is normal. QRS interval is normal. QT interval is normal. Clinical impression: NSR w/ Non-specific ST/T Changes. Administered Medications: 11:39 Drug: Aspirin Chewable Tablet 324 mg Route: PO; em 12:00 Follow up: Response: No adverse reaction em 11:43 Drug: Lopressor 5 mg Route: IVP; Site: right antecubital; em 12:00 Follow up: Response: No adverse reaction em 11:56 Not Given (Patient Refused): morphine 4 mg IVP once; RASS on ADMIN: Combtv4, Very em Agttd3, Agttd2, Rstlss1, AlertClm0, Drwsy-1, Lt Sdtn-2, Mod Sdtn-3, Dp Sdtn-4, UnArsble-5 11:56 Not Given (Patient Refused): Zofran (Ondansetron) 4 mg IVP once; over 2 minutes em 11:58 Drug: NS 0.9% 500 ml Route: IV; Rate: bolus; Site: right antecubital; em 13:00 Follow up: IV Status: Completed infusion; IV Intake: 500ml em Disposition: 02/23/20 14:24 Discharged to Home. Impression: Chest pain, unspecified. - Condition is Stable. - Discharge Instructions: Nonspecific Chest Pain, [id number]. - Prescriptions for Ibuprofen 600 mg Oral Tablet - take 1 tablet by ORAL route every 6 hours As needed take with food; 15 tablet. Pepcid 20 mg Oral Tablet - take 1 tablet by ORAL route every 12 hours for 10 days; 20 tablet. - Family Work Release, Medication Reconciliation Form, Thank You Letter form. - Follow up: Private Physician; When: 2 - 3 days; Reason: If symptoms return, Further diagnostic work-up, Recheck today's complaints, Continuance of care, Re-evaluation by your physician. - Problem is new. - Symptoms are resolved. Signatures: Dispatcher [employer] [facility] Rosa Marshall, RN RN Avi Breen MD MD kdr Munoz, Edgar, RN RN Magaly Vance RN RN Corrections: (The following items were deleted from the chart) 11:00 10:43 Chest Angio+CT.RAD.BRZ ordered. [facility] 15:02 14:24 02/23/2020 14:24 Discharged to Home. Impression: Chest pain, unspecified. sv Condition is Stable. Forms are Medication Reconciliation Form, Thank You Letter, Antibiotic Education, Prescription Opioid Use. Follow up: Private Physician; When: 2 - 3 days; Reason: If symptoms return, Further diagnostic work-up, Recheck today's complaints, Continuance of care, Re-evaluation by your physician. Problem is new. Symptoms are resolved. kdr
--- NOTE | 2020-02-23 14:25 | ER ---
Nurse's Notes [facility] Name: Denis De Age: 44 yrs Sex: Male : 1975 Arrival Date: 02/23/2020 Time: 10:31 Bed 7 Private MD: Diagnosis: Chest pain, unspecified Presentation: 02/22 10:32 Chief complaint: Patient states: midsternal chest pain that radiates to the back. Pain sv started over an hour ago and drove from [facility]. Risk Assessment: Do you want to hurt yourself or someone else? Patient reports no desire to harm self or others. Onset of symptoms was February 23, 2020. 10:32 Method Of Arrival: Wheelchair sv 10:32 Acuity: GUILLERMO 2 sv Triage Assessment: 10:32 General: Appears distressed, uncomfortable, Behavior is cooperative, anxious. Pain: sv Complains of pain in chest Pain radiates to back. Neuro: Level of Consciousness is awake, alert, obeys commands, Moves all extremities. Cardiovascular: Reports chest pain, shortness of breath. Respiratory: Respiratory effort is labored, Respiratory pattern is tachypnea. Historical: - Allergies: 10:33 PENICILLINS; hb - Home Meds: 10:33 losartan Oral once daily [Active]; hb - PMHx: 10:33 Hypertension; hb - Immunization history:: Adult Immunizations up to date. - Social history:: Smoking status: Patient denies any tobacco usage or history of. Screenin:33 Abuse screen: Denies threats or abuse. Denies injuries from another. Nutritional hb screening: No deficits noted. Tuberculosis screening: No symptoms or risk factors identified. Fall Risk None identified. Assessment: 10:30 General: Appears distressed, uncomfortable, Behavior is restless. Pain: Pain radiates em to back and left arm Pain currently is 10 out of 10 on a pain scale. Quality of pain is described as sharp, "ripping" Pain began suddenly, 30 min ago. Neuro: Level of Consciousness is awake, alert, obeys commands, Oriented to person, place, time, situation, Appropriate for age. Cardiovascular: Capillary refill < 3 seconds Patient's skin is warm and dry. Rhythm is sinus rhythm. Respiratory: Airway is patent Respiratory effort is even, unlabored, Respiratory pattern is regular, symmetrical. GI: Abdomen is flat. Derm: Skin is intact, is healthy with good turgor, Skin is pink, warm \\T\\ dry. Musculoskeletal: Capillary refill < 3 seconds, Range of motion: intact in all extremities. 10:38 Reassessment: pt does not want to morphine, states he does not want to be doped up, em request Tylenol, pt reports chest is ripping, Dr. Breen notified. 10:45 Reassessment: daughter reports pt was up drinking up until 1 AM, notified. em 10:48 Reassessment: wheeled to CT via stretcher. em 11:18 Reassessment: Patient asked for water. Notified Dr Breen; Dr Breen gave verbal vg1 response to give ice chips. 12:05 Reassessment: Patient appears in no apparent distress at this time. Patient and/or em family updated on plan of care and expected duration. Pain level reassessed. Patient is alert, oriented x 3, equal unlabored respirations, skin warm/dry/pink. Patient denies pain at this time. Patient states feeling better. 13:00 Reassessment: Patient appears in no apparent distress at this time. Patient and/or hb family updated on plan of care and expected duration. Pain level reassessed. Patient is alert/active/playful, equal unlabored respirations, skin warm/dry/pink. 14:11 Reassessment: Patient appears in no apparent distress at this time. Patient and/or hb family updated on plan of care and expected duration. Pain level reassessed. Patient is alert, oriented x 3, equal unlabored respirations, skin warm/dry/pink. 14:41 Reassessment: Waiting on Dr Breen to speak with pt regarding results and disposition sv before being discharged. Vital Signs: 10:34 BP 186 / 119; Pulse 101; Resp 18; Temp 98.9; Pulse Ox 99% on R/A; Pain 10/10; em 10:46 BP 147 / 94; em 10:46 BP 177 / 118 LA; em 11:10 BP 174 / 94; Pulse 78; Resp 18; Pulse Ox 95% on R/A; Pain 0/10; em 11:33 BP 149 / 94; Pulse 81; Resp 18; Pulse Ox 95% on R/A; em 11:40 BP 141 / 92; Pulse 72 LA; em 12:00 BP 132 / 94; Pulse 67; Resp 18; Pulse Ox 97% on R/A; Pain 0/10; em 13:00 BP 163 / 100; Pulse 77; Resp 17; Pulse Ox 100% on R/A; hb 14:30 BP 150 / 102; Pulse 67; Resp 18; Pulse Ox 96% on R/A; em ED Course: 10:30 Patient maintains SpO2 saturation greater than 95% on room air. em 10:31 Patient arrived in ED. sv 10:32 Triage completed. sv 10:32 Inserted saline lock: 20 gauge in right antecubital area, using aseptic technique. hb Blood collected. 10:33 Khoi Fernandez, RN is Primary Nurse. em 10:33 Arm band placed on. hb 10:33 Patient has correct armband on for positive identification. Bed in low position. Call em light in reach. Side rails up X2. Adult w/ patient. satellite project site monitor on. Pulse ox on. NIBP on. 10:35 Avi Breen MD is Attending Physician. kdr 11:03 Angio Aorta For Dissection In Process Unspecified. EDMS 11:13 XRAY Chest (1 view) In Process Unspecified. EDMS 15:01 No provider procedures requiring assistance completed. IV discontinued, intact, sv bleeding controlled, No redness/swelling at site. Pressure dressing applied. Administered Medications: 11:39 Drug: Aspirin Chewable Tablet 324 mg Route: PO; em 12:00 Follow up: Response: No adverse reaction em 11:43 Drug: Lopressor 5 mg Route: IVP; Site: right antecubital; em 12:00 Follow up: Response: No adverse reaction em 11:56 Not Given (Patient Refused): morphine 4 mg IVP once; RASS on ADMIN: Combtv4, Very em Agttd3, Agttd2, Rstlss1, AlertClm0, Drwsy-1, Lt Sdtn-2, Mod Sdtn-3, Dp Sdtn-4, UnArsble-5 11:56 Not Given (Patient Refused): Zofran (Ondansetron) 4 mg IVP once; over 2 minutes em 11:58 Drug: NS 0.9% 500 ml Route: IV; Rate: bolus; Site: right antecubital; em 13:00 Follow up: IV Status: Completed infusion; IV Intake: 500ml em Intake: 13:00 IV: 500ml; Total: 500ml. em Outcome: 14:24 Discharge ordered by . jennifer 15:01 Discharged to home ambulatory, with family. sv 15:01 Condition: stable 15:01 Discharge instructions given to patient, Instructed on discharge instructions, follow up and referral plans. medication usage, Demonstrated understanding of instructions, follow-up care, medications, Prescriptions given X 2. 15:02 Patient left the ED. sv Signatures: Dispatcher [employer] Rosa Armas RN RN Avi Montemayor MD MD kdr Munoz, Edgar, RN RN em Baxter, Heather, Raya Lema RN RN RN vg1
[2020-02-23 15:16] VITALS: TEMP 98.9
[2020-02-23 15:26] VITALS: BP 150/102; O2SAT 96
--- NOTE | 2020-02-24 09:34 | EKG ---
Test Date: 2020-02-23 Test Time: 10:35:23 License Clerk: JOEL MEASUREMENT RESULTS: Intervals: Rate: 96 OH: 132 QRSD: 84 QT: 360 QTc: 454 Sparks: P: 63 OH: 132 QRS: 43 T: 40 INTERPRETIVE STATEMENTS: Normal sinus rhythm ST abnormality, possible digitalis effect Abnormal ECG No previous ECG available for comparison Electronically Signed On 02-24-20 09:31:09 CDT by Vahid Randhawa
== END 2020-02-23 15:02 | disposition home or self-care (01) ==
LOC: ER 10:29
DX: R07.9 Chest pain, unspecified (principal); I10 Essential (primary) hypertension; Z88.0 Allergy status to penicillin
CPT/HCPCS: 36415; 71045; 71275; 74175; 80048; 80076; 80320; 82565; 83690; 83735; 83880; 84484; 85025; 85610; 93005; 96361; 96374; 99285; J2405; J7040; Q9967

== ENCOUNTER 2022-11-03 09:30 | Emergency (ER) | payer OTHER, SELFPAY ==
[2022-11-03] MEDS ORDERED: NA CHLORIDE 0.9% 1,000 ML ONE (10:09)
[2022-11-03] MEDS ORDERED: IBUPROFEN 200 MG TAB PO ONE (10:09)
[2022-11-03 10:11] LABS: Absolute Lymphocytes (CBC) 1.2 K/uL (0.7-4.9); Hematocrit 46.3 % (39.6-49.0); Lymphocytes % 24.1 % (15.3-44.8); MCV 90.5 fL (80-100); MPV 7.9 fL (7.6-11.3); RBC Red Blood Cell Count 5.12 M/uL (4.33-5.43)
--- NOTE | 2022-11-03 10:23 | RAD REPORT ---
EXAM DESCRIPTION: Francie Single View11/03/2022 10:10 am CLINICAL HISTORY: fever COMPARISON: 2019 FINDINGS: The lungs appear clear of acute infiltrate. The heart is normal size IMPRESSION: No acute abnormalities displayed
[2022-11-03 10:25] LABS: Potassium 3.9 mEq/L (3.5-5.1)
[2022-11-03] MEDS ORDERED: OSELTAMIVIR 75 MG CAP PO ONE (10:47)
[2022-11-03] MEDS ORDERED: dexAMETHasone 10 MG/ML VIAL ONE (10:47)
--- NOTE | 2022-11-03 11:50 | EDPHYS ---
Physician Documentation [facility] Name: Denis De Age: 46 yrs Sex: Male : 1975 Arrival Date: 11/03/2022 Time: 09:30 Bed 20 Private MD: ED Physician Jaspal Schuster HPI: 11/03 09:42 This 46 yrs old Male presents to ER via Ambulatory with complaints of Cough, jmm Headache. 09:42 The patient or guardian reports cough. Onset: The symptoms/episode began/occurred jmm gradually, 2 day(s) ago. Modifying factors: The symptoms are alleviated by nothing, the symptoms are aggravated by nothing. Associated signs and symptoms: Pertinent positives: fever, sore throat. The patient has experienced similar episodes in the past. Historical: - Allergies: 09:40 PENICILLINS; jl7 - Home Meds: 09:40 losartan Oral once daily [Active]; jl7 - PMHx: 09:40 Hypertension; jl7 - Immunization history:: Client reports receiving the 2nd dose of the Covid vaccine. - Social history:: Smoking status: Patient denies any tobacco usage or history of. ROS: 09:42 Constitutional: Positive for body aches, chills, fever. jmm 09:42 ENT: Positive for sore throat. 09:42 Respiratory: Positive for cough. 09:42 All other systems are negative. Exam: 09:42 Constitutional: This is a well developed, well nourished patient who is awake, alert, jmm and in no acute distress. Head/Face: atraumatic. Eyes: EOMI, no conjunctival erythema appreciated ENT: Moist Mucus Membranes Neck: Trachea midline, Supple Chest/axilla: Normal chest wall appearance and motion. Cardiovascular: Regular rate and rhythm. No edema appreciated Respiratory: Normal respirations, no respiratory distress appreciated Abdomen/GI: Non distended Back: Normal ROM Skin: General appearance color normal MS/ Extremity: Moves all extremities, no obvious deformities appreciated, no edema noted to the lower extremities Neuro: Awake and alert Psych: Behavior is normal, Mood is normal, Patient is cooperative and pleasant Vital Signs: 09:39 BP 164 / 105; Pulse 72; Resp 17; Temp 101; Pulse Ox 100% ; Weight 92.99 kg; Height 5 jl7 ft. 7 in. ; 09:51 BP 176 / 95; Pulse 73; Resp 17; Temp 101.1(O); Pulse Ox 98% ; rs5 11:23 BP 150 / 92; Pulse 82; Resp 16; Temp 99.5; Pulse Ox 99% ; bp 09:39 Body Mass Index 32.11 (92.99 kg, 170.18 cm) jl7 MDM: 09:45 Patient medically screened. [facility] 14:21 Differential Diagnosis: Bronchitis Influenza Upper Respiratory Infection Sinusitis [facility] Pharyngitis. Data reviewed: vital signs, nurses notes, lab test result(s). Counseling: I had a detailed discussion with the patient and/or guardian regarding: the historical points, exam findings, and any diagnostic results supporting the discharge/admit diagnosis, lab results, radiology results, the need for outpatient follow up, to return to the emergency department if symptoms worsen or persist or if there are any questions or concerns that arise at home. 11/03 09:42 Order name: SARS-COV-2 RT PCR; Complete Time: 10:30 [facility] 11/03 09:42 Order name: Influenza Screen (a \T\ B); Complete Time: 10:30 [facility] 11/03 09:42 Order name: Strep [facility] 11/03 09:53 Order name: CBC with Diff; Complete Time: 10:30 [facility] 11/03 09:53 Order name: BMP; Complete Time: 10:30 [facility] 11/03 10:20 Order name: Throat Culture [facility] 11/03 09:42 Order name: Chest Single View XRAY; Complete Time: 10:30 [facility] 11/03 09:53 Order name: Saline Lock; Complete Time: 10:15 [facility] Administered Medications: 10:14 Drug: NS 0.9% IV 1000 ml Route: IV; Rate: 1 bolus; Site: right wrist; bp 11:58 Follow up: IV Status: Completed infusion; IV Intake: 1000ml bp 10:15 Drug: Ibuprofen PO 600 mg Route: PO; bp 11:59 Follow up: Response: Temperature is decreased bp 10:41 Drug: Oseltamivir PO 75 mg Route: PO; bp 11:59 Follow up: Response: No adverse reaction bp 10:41 Drug: Decadron - Dexamethasone IVP 10 mg Route: IVP; Site: right wrist; bp 11:59 Follow up: Response: No adverse reaction bp Disposition: 16:43 Co-signature as Attending Physician, Jaspal Schuster DO I was immediately available on-site ms3 in the Emergency Department for consultation in the care of the patient. Disposition Summary: 11/03/22 11:50 Discharge Ordered Location: Home [facility] Condition: Stable [facility] Diagnosis - influenza b [facility] Followup: [facility] - With: Private Physician - When: 2 - 3 days - Reason: Recheck today's complaints, Continuance of care, Re-evaluation by your physician Discharge Instructions: - Discharge Summary Sheet [facility] - Influenza, Adult [facility] Forms: - Medication Reconciliation Form [facility] - Thank You Letter [facility] - Antibiotic Education [facility] - Prescription Opioid Use [facility] - [email or web address].htm [facility] Prescriptions: - promethazine-DM 6.25-15 mg/5 mL Oral syrup - administer 10 milliliter by ORAL route every 4 to 6 hours As needed; 200 jmm milliliter; Refills: 0, Product Selection Permitted - Tamiflu 75 mg Oral Capsule - take 1 tablet by ORAL route every 12 hours for 5 days; 10 tablet; Refills: 0, [facility] Product Selection Permitted Signatures: Dispatcher [employer] EDMS Sahil Ray PA PA jmm Leal, Jahala, RN RN jl7 Mich Griffith, RN Jaspal Argueta DO DO ms3
--- NOTE | 2022-11-03 11:50 | ER ---
Nurse's Notes [facility] Name: Denis De Age: 46 yrs Sex: Male : 1975 Arrival Date: 11/03/2022 Time: 09:30 Bed 20 Private MD: Diagnosis: influenza b Presentation: 11/03 09:39 Chief complaint: Patient states: Cough, fever x 2 days. Coronavirus screen: Client [facility] presents with at least one sign or symptom that may indicate coronavirus-19. Ebola Screen: No symptoms or risks identified at this time. Initial Sepsis Screen: Does the patient meet any 2 criteria? No. Patient's initial sepsis screen is negative. Does the patient have a suspected source of infection? No. Patient's initial sepsis screen is negative. Risk Assessment: Do you want to hurt yourself or someone else? Patient reports no desire to harm self or others. Onset of symptoms was November 01, 2022. 09:39 Method Of Arrival: Ambulatory [facility] 09:39 Acuity: GUILLERMO 3 [facility] Triage Assessment: 09:40 Headache History: The patient has had previous headaches and this one is similar to [facility] previous episodes. General: Appears in no apparent distress. uncomfortable, Behavior is calm, cooperative, appropriate for age. Pain: Complains of pain in body aches Pain Pain began gradually, Also complains of no other associated symptoms. Neuro: Level of Consciousness is awake, alert, obeys commands, Oriented to person, place, time, situation. Historical: - Allergies: 09:40 PENICILLINS; [facility] - Home Meds: 09:40 losartan Oral once daily [Active]; [facility] - PMHx: 09:40 Hypertension; [facility] - Immunization history:: Client reports receiving the 2nd dose of the Covid vaccine. - Social history:: Smoking status: Patient denies any tobacco usage or history of. Screenin:15 [facility] ED Fall Risk Assessment (Adult) History of falling in the last 3 months, bp including since admission No falls in past 3 months (0 pts). Abuse screen: Denies threats or abuse. Denies injuries from another. Nutritional screening: No deficits noted. Tuberculosis screening: No symptoms or risk factors identified. Assessment: 09:45 General: SEE TRIAGE NOTE. bp 11:24 Reassessment: Patient appears in no apparent distress at this time. Patient is alert, bp oriented x 3, equal unlabored respirations, skin warm/dry/pink. 11:58 Reassessment: DC HOME AMBULATORY. Pain: Denies pain. bp Vital Signs: 09:39 BP 164 / 105; Pulse 72; Resp 17; Temp 101; Pulse Ox 100% ; Weight 92.99 kg; Height 5 jl7 ft. 7 in. ; 09:51 BP 176 / 95; Pulse 73; Resp 17; Temp 101.1(O); Pulse Ox 98% ; rs5 11:23 BP 150 / 92; Pulse 82; Resp 16; Temp 99.5; Pulse Ox 99% ; bp 09:39 Body Mass Index 32.11 (92.99 kg, 170.18 cm) 7 ED Course: 09:32 Patient arrived in ED. im 09:36 Sahil Ray PA is PHCP. jmm 09:37 Jaspal Schuster DO is Attending Physician. jmm 09:40 Triage completed. jl7 09:40 Arm band placed on right wrist. jl7 09:50 Mich Griffith, RN is Primary Nurse. bp 09:52 Strep Sent. rs5 09:52 Influenza Screen (a \T\ B) Sent. rs5 09:52 SARS-COV-2 RT PCR Sent. rs5 09:55 Strep Sent. rs5 09:55 Influenza Screen (a \T\ B) Sent. rs5 09:55 SARS-COV-2 RT PCR Sent. rs5 10:06 Missed attempt(s): 20 gauge in right antecubital area. rs5 10:06 BMP Sent. rs5 10:06 CBC with Diff Sent. rs5 10:06 Strep Sent. rs5 10:06 Influenza Screen (a \T\ B) Sent. rs5 10:06 SARS-COV-2 RT PCR Sent. rs5 10:12 Chest Single View XRAY In Process Unspecified. EDMS 10:15 Patient has correct armband on for positive identification. Bed in low position. Call bp light in reach. Side rails up X2. 11:58 No provider procedures requiring assistance completed. IV discontinued, intact, bp bleeding controlled, No redness/swelling at site. Pressure dressing applied. Administered Medications: 10:14 Drug: NS 0.9% IV 1000 ml Route: IV; Rate: 1 bolus; Site: right wrist; bp 11:58 Follow up: IV Status: Completed infusion; IV Intake: 1000ml bp 10:15 Drug: Ibuprofen PO 600 mg Route: PO; bp 11:59 Follow up: Response: Temperature is decreased bp 10:41 Drug: Oseltamivir PO 75 mg Route: PO; bp 11:59 Follow up: Response: No adverse reaction bp 10:41 Drug: Decadron - Dexamethasone IVP 10 mg Route: IVP; Site: right wrist; bp 11:59 Follow up: Response: No adverse reaction bp Medication: 11:58 VIS not applicable for this client. bp Intake: 11:58 IV: 1000ml; Total: 1000ml. bp Outcome: 11:50 Discharge ordered by MD. dariana 11:58 Discharged to home ambulatory. bp 11:58 Condition: stable 11:58 Discharge instructions given to patient, Instructed on discharge instructions, follow up and referral plans. medication usage, Demonstrated understanding of instructions, follow-up care, medications, Prescriptions given X 2. 11:59 Patient left the ED. bp Signatures: Dispatcher [employer] EDMS Sahil Ray PA PA jmm Leal, Jahala, RN RN jl7 Mich Griffith RN RN bp Ady Blanco rs5 Fatoumata Grijalva
[2022-11-03 12:08] VITALS: BP 150/92; TEMP 99.5; O2SAT 99
== END 2022-11-03 11:59 | disposition home or self-care (01) ==
LOC: ER 09:30
DX: J10.1 Influenza due to other identified influenza virus with other respiratory manifestations (principal); Z20.822 Contact with and (suspected) exposure to COVID-19; I10 Essential (primary) hypertension; Z88.0 Allergy status to penicillin
CPT/HCPCS: 96361; 87070; 85025; 80048; 36415; 87081; 87635; 87804 ×2; 71045; 96374; 99284; J1100; J7030

== ENCOUNTER 2024-05-13 03:58 | Emergency (ER) | payer BC, OTHER ==
--- NOTE | 2024-05-13 04:12 | EDPHYS ---
Physician Documentation [facility] Name: Denis De Age: 48 yrs Sex: Male : 1975 Arrival Date: 05/13/2024 Time: 03:58 Bed 5 Private MD: ED Physician Denys Carrillo HPI: 05/13 04:12 This 48 yrs old Male presents to ER via Unassigned with complaints of ec2 Dizziness, Near Syncope. 04:12 Patient arrives today for evaluation of lightheadedness. Reports that he woke up early ec2 this morning and felt lightheaded and wanted to be evaluated, specifically states that he wanted a blood pressure and his blood sugar checked. Reports symptoms have since resolved. No chest pain or shortness of breath. No abdominal pain. Reports a history of hypertension. Historical: - Allergies: 04:14 PENICILLINS; al5 - PMHx: 04:14 Hypertension; al5 - PSHx: 04:14 None; al5 - Immunization history:: Adult Immunizations up to date. - Infectious Disease History:: Denies. - Social history:: Smoking status: Patient denies any tobacco usage or history of. ROS: 04:12 Constitutional: as per hpi ec2 Exam: 04:12 Constitutional: GEN: NAD Head: atraumatic Eyes: EOMI Ears: External ears are ec2 normal. CV: Tachycardia LUNGS: no respiratory distress ABD: non-distended SKIN: no evidence of rashes MSK: no evidence of trauma Vital Signs: 04:12 BP 183 / 100; Pulse 107; Resp 16; Temp 97.9; Pulse Ox 100% on R/A; Weight 102.06 kg; al5 Height 5 ft. 7 in. ; Pain 0/10; 04:12 Body Mass Index 35.24 (102.06 kg, 170.18 cm) al5 04:12 Pain Scale: Adult al5 MDM: 04:01 Medical Screening Exam initiated ec2 04:12 Data reviewed: vital signs, nurses notes. ED course: Patient arrives today for ec2 lightheadedness that is since resolved. Examination is revealing for slightly tachycardic individual was also hypertensive without complaints of chest pain or shortness of breath. I recommended obtaining a cardiac workup to evaluate for arrhythmias as well as obtaining blood work to evaluate for cardiac pathology as well as anemia and electrolyte disturbances and renal dysfunction however the patient declined and did not want to be further evaluated. I instructed him to return to the emergency department if he changes his mind and would like to be further evaluated otherwise patient appeared decisional and coherent to make a decision. Patient expressed understanding regarding risk and benefits of not obtaining further workup including . 05/13 04:19 Order name: Glucose, Ancillary Testing [facility] 05/13 04:02 Order name: EKG; Complete Time: 04:02 ec2 05/13 04:02 Order name: O2 Per Protocol; Complete Time: 04:11 ec2 05/13 04:02 Order name: O2 Sat Monitoring; Complete Time: 04:11 ec2 Administered Medications: 04:12 CANCELLED (Physician Discretion): ns 0.9% 500 ml 500 ml IV at 1 bolus once; to be given ec2 as a bolus over 30 minutes Point of Care Testing: Blood Glucose: 04:13 Blood Glucose: 114 mg/dL; al5 Ranges: Critical Glucose Levels:Adult <50 mg/dl or >400 mg/dl <40 mg/dl or >180 mg/dl Disposition Summary: 05/13/24 04:11 Discharge Ordered Condition: Stable ec2 Diagnosis - Dizziness and giddiness ec2 Followup: ec2 - With: Private Physician - When: - Reason: Re-evaluation by your physician Discharge Instructions: - Discharge Summary Sheet ec2 - Dizziness, [id number] ec2 Forms: - Medication Reconciliation Form ec2 - Antibiotic Education ec2 - Prescription Opioid Use ec2 - Patient Portal Instructions ec2 - Leadership Thank You Letter ec2 Signatures: Dispatcher [employer] [facility] Denys Carrillo MD MD ec2 Kaila García RN RN al5 Corrections: (The following items were deleted from the chart) 04: 04:02 Cardiac monitoring ordered. ec2 al5 04:11 04:02 EKG - Nurse/Tech ordered. ec2 al5 04: 04:02 IV Saline Lock ordered. ec2 al5 04:11 04:02 Labs collected and sent ordered. ec2 al5 04:12 04:02 NS 0.9% IV 500 ml 500 ml IV at 1 bolus once; to be given as a bolus over 30 ec2 minutes ordered. ec2
--- NOTE | 2024-05-13 04:22 | ER ---
Nurse's Notes [facility] Name: Denis De Age: 48 yrs Sex: Male : 1975 Arrival Date: 05/13/2024 Time: 03:58 Bed 5 Private MD: Diagnosis: Dizziness and giddiness Presentation: 05/13 04:12 Chief complaint: Patient states: he woke up this morning and felt lightheaded and al5 dizzy, says he wanted to get checked out to make sure his blood sugar was fine. Coronavirus screen: At this time, the client does not indicate any symptoms associated with coronavirus-19. Ebola Screen: No symptoms or risks identified at this time. Initial Sepsis Screen: Does the patient meet any 2 criteria? No. Patient's initial sepsis screen is negative. Does the patient have a suspected source of infection? No. Patient's initial sepsis screen is negative. Risk Assessment: Do you want to hurt yourself or someone else? Patient reports no desire to harm self or others. Onset of symptoms was May 13, 2024. 04:12 Method Of Arrival: Ambulatory al5 04:12 Acuity: GUILLERMO 3 al5 Triage Assessment: 04:13 General: Appears in no apparent distress. comfortable, Behavior is calm, cooperative. al5 Pain: Denies pain. EENT: No signs and/or symptoms were reported regarding the EENT system. Neuro: Level of Consciousness is awake, alert, obeys commands, Oriented to person, place, time, situation. Cardiovascular: Capillary refill < 3 seconds Patient's skin is warm and dry. Cardiovascular: Reports lightheadedness. Respiratory: Airway is patent Respiratory effort is even, unlabored, Respiratory pattern is regular, symmetrical. GI: No signs and/or symptoms were reported involving the gastrointestinal system. : No signs and/or symptoms were reported regarding the genitourinary system. Derm: Skin is intact, is healthy with good turgor, Skin is pink, warm \T\ dry. normal. Musculoskeletal: No signs and/or symptoms reported regarding the musculoskeletal system. Historical: - Allergies: 04:14 PENICILLINS; al5 - PMHx: 04:14 Hypertension; al5 - PSHx: 04:14 None; al5 - Immunization history:: Adult Immunizations up to date. - Infectious Disease History:: Denies. - Social history:: Smoking status: Patient denies any tobacco usage or history of. Screenin:21 [facility] ED Fall Risk Assessment (Adult) History of falling in the last 3 months, al5 including since admission No falls in past 3 months (0 pts) Confusion or Disorientation No (0 pts) Intoxicated or Sedated No (0 pts) Impaired Gait No (0 pts) Mobility Assist Device Used No (0 pt) Altered Elimination No (0 pt) Score/Fall Risk Level 0 - 2 = Low Risk Oriented to surroundings, Maintained a safe environment, Hourly rounding (assess needs \T\ fall precautionary measures) done. Abuse screen: Denies threats or abuse. Denies injuries from another. Nutritional screening: No deficits noted. Tuberculosis screening: No symptoms or risk factors identified. Assessment: 04:15 Reassessment: MD at bedside with this nurse assessing patient and triaging. educated al5 patient on plan of care, patient refused any care except for a blood sugar check. patient educated on the importance of a cardiac work up due to his symptoms, patient verbalized understanding, but still refused care. patient denies any symptoms other than lightheadedness and dizziness, states he normally has high blood pressure and has not taken his blood pressure medication this morning. states to this nurse and MD that all he wanted to know was what his blood sugar was. reassured patient stating that he is more than welcome to come back if he decides to change his mind and wants to be treated, patient verbalized understanding and thanked us for the care. patient to be discharged home. Vital Signs: 04:12 BP 183 / 100; Pulse 107; Resp 16; Temp 97.9; Pulse Ox 100% on R/A; Weight 102.06 kg; al5 Height 5 ft. 7 in. ; Pain 0/10; 04:12 Body Mass Index 35.24 (102.06 kg, 170.18 cm) al5 04:12 Pain Scale: Adult al5 ED Course: 04:01 Patient arrived in ED. jj6 04:01 Denys Carrillo MD is Attending Physician. ec2 04:11 Kaila García, JERED is Primary Nurse. al5 04:13 Triage completed. al5 04:15 Arm band placed on right wrist. Patient placed in the treatment room, on a stretcher, al5 on pulse oximetry. 04:16 Patient has correct armband on for positive identification. Bed in low position. Call al5 light in reach. Provided Education on: plan of care. 04:21 No provider procedures requiring assistance completed. Patient did not have IV access al5 during this emergency room visit. Administered Medications: 04:12 CANCELLED (Physician Discretion): ns 0.9% 500 ml 500 ml IV at 1 bolus once; to be given ec2 as a bolus over 30 minutes Medication: 04:21 VIS not applicable for this client. al5 Point of Care Testing: Blood Glucose: 04:13 Blood Glucose: 114 mg/dL; al5 Ranges: Outcome: 04:11 Discharge ordered by . ec2 04:21 Discharged to home ambulatory, al5 04:21 Condition: good 04:21 Discharge instructions given to patient, Instructed on discharge instructions, Demonstrated understanding of instructions, 04:21 Patient left the ED. al5 Signatures: Tammie Ray jj6 Denys Carrillo MD MD ec2 Kaila García RN RN al5
[2024-05-13 04:27] VITALS: BP 183/100; TEMP 97.9; O2SAT 100
== END 2024-05-13 04:21 | disposition home or self-care (01) ==
LOC: ER 03:58
DX: R42 Dizziness and giddiness (principal); I10 Essential (primary) hypertension; Z88.0 Allergy status to penicillin
CPT/HCPCS: 82947; 99283